=== PATIENT | male | born 1960 | race Caucasian/White ===

== ENCOUNTER 2021-09-07 00:19 | Day surgery (SDC) | payer BC, SELFPAY ==
[2021-08-26 08:44] VITALS: BMI 35.4
[2021-09-07 07:26] VITALS: BP 160/74; PULSE 66; RESP 18; TEMP 36.3; O2SAT 99
[2021-09-07] MEDS: LACTATED RINGERS 1,000 ML 150 ML IV CONT (07:38)
[2021-09-07 07:43] LABS: Glucose Point of Care 153 mg/dl (65-105)
--- NOTE | 2021-09-07 08:18 | PM.IMHP ---
H&P: HPI History of Present Illness Date/Time: 09/07/21 08:18 Chief Complaint: Positive Cologuard test. Narrative: This is a 60-year-old white male patient referred for evaluation of positive Cologuard test. Patient reports that his current weight appetite and bowel movements are normal. Patient denies abdominal pain. He has had no bleeding. Family history is noncontributory. Patient's past medical history is significant for prostate carcinoma for which she had radiation therapy more than 10 years ago. Review of Systems Review of Systems: Review of systems noncontributory. [facility] Past Medical History Medical History (Updated 08/19/21 @ 15:57 by Jessie Francisco PA-C) Encounter for debridement of skin Essential hypertension History of radiation therapy Hyperlipidemia MRSA infection Positive colorectal cancer screening using Cologuard test Prostate cancer Type 2 diabetes mellitus Surgical History Surgical History History of discectomy Family History Family History Grandparent Hypertension Family history of Alzheimer's disease Other Diabetes mellitus Social History Social History Years smoked: 40 Smoking status: Former smoker Tobacco type: cigars Smokeless tobacco user: dissolvable tobacco Second hand tobacco smoke exposure: No Smoking end date: 11/14/19 Alcohol intake: current Drinks per week: 3 Alcohol use details: Beer on occasion. Substance use: never Substance use type: does not use Living arrangements: with family Gender identity (if verbalized by the patient): Male Spiritual care concerns: No Meds Home Medications and Allergies Home Medications Medication Instructions Recorded Confirmed Type glimepiride 2 mg tablet 2 mg PO QAM #90 tabs 05/10/21 09/07/21 Rx lisinopril 40 mg tablet 40 mg PO DAILY #90 tabs 07/09/21 09/07/21 Rx hydrochlorothiazide 25 mg tablet 25 mg PO DAILY #90 tabs 08/02/21 09/07/21 Rx peg 3350-electrolytes 236 240 ml PO Q10M #4,000 mL 08/25/21 Rx gram-22.74 gram-6.74 gram-5.86 gram solution (Golytely) Allergies Allergy/AdvReac Type Severity Reaction Status Date / Time grass pollen Allergy Mild Unknown Verified 09/07/21 07:25 horse dander Allergy Mild Unknown Verified 09/07/21 07:25 Cats Allergy Mild sneezing Uncoded 09/07/21 07:25 and eye itching Vital Signs Vital Signs - 24 hr 09/07/21 07:26 Temperature 97.4 F L Pulse Rate 66 Respiratory Rate 18 Blood Pressure 160/74 H Pulse Oximetry 99 Oxygen Delivery Room Air Exam Narrative: Physical exam reveals patient be alert. Vital signs stable. HEENT exam is unremarkable. Patient is anicteric. Lungs are clear to auscultation and percussion. Heart is without murmur or extra sounds. Abdomen bowel sounds are present soft nontender with no organomegaly. Digital external rectal exam is normal. Assessment and Plan Assessment and plan (1) Positive colorectal cancer screening using Cologuard test: Code(s): R19.5 - Other fecal abnormalities Status: Acute Assessment and Plan: Patient presents for colonoscopy today. He has a prior history of positive Cologuard test. Further recommendations will be given after endoscopy.
[2021-09-07] MEDS: SIMETHICONE ORAL SUSPENSION 20 MG/0.3 ML 30 ML BOTTLE 0.6 ML IRRIGATION (08:39)
[2021-09-07 08:53] VITALS: BP 151/90; PULSE 62; RESP 18; O2SAT 98
[2021-09-07 09:03] VITALS: BP 140/83; PULSE 53; RESP 17; O2SAT 97
[2021-09-07 09:13] VITALS: BP 164/79; PULSE 56; RESP 15; O2SAT 99
== END 2021-09-07 09:19 | disposition home or self-care (01) ==
PROVIDERS: PCP Family Medicine; Visit Provider Internal Medicine Gastroenterology
PROC: 0DJD8ZZ Inspection of Lower Intestinal Tract, Via Natural or Artificial Opening Endoscopic (ICD-10-PCS; CPT 45378; principal; 2021-09-07 08:30)
DX: R19.5 Other fecal abnormalities (principal); D12.2 Benign neoplasm of ascending colon; D12.4 Benign neoplasm of descending colon; D12.5 Benign neoplasm of sigmoid colon; I10 Essential (primary) hypertension; E78.5 Hyperlipidemia, unspecified; E11.9 Type 2 diabetes mellitus without complications; Z85.46 Personal history of malignant neoplasm of prostate; Z92.3 Personal history of irradiation
CPT/HCPCS: 45385; 82948; 88305; J2704; J7120

== ENCOUNTER 2021-09-07 16:29 | Inpatient (IN) | payer BC, SELFPAY ==
[2021-09-07] VITALS (25 sets, daily range): BP systolic 72–186; BP diastolic 55–110; PULSE 51–90; RESP 12–24; TEMP 36.4–36.8; O2SAT 97–100; BMI 35.9
--- NOTE | ~2021-09-07 | NM_ITS ---
EXAMINATION: NM GI bleeding DATE: 09/07/2021 21:26 INDICATION: Bright red blood per rectum. TECHNIQUE: 23.97 mCi Tc 99m in vitro labeled red cells was administered intravenously. Scintigraphic images of the abdomen were obtained for one hour. COMPARISON: CT angiogram abdomen and pelvis, same date. FINDINGS: No pattern of abnormal activity is seen in the abdomen or pelvis to suggest gastrointestina l hemorrhage. IMPRESSION: 1. No evidence of active gastrointestinal hemorrhage. Reviewed, dictated and finalized at location K.
--- NOTE | ~2021-09-07 | CT_ITS ---
EXAMINATION: CTA abdomen pelvis DATE: 09/07/2021 17:41 INDICATION: active rectal bleeding, status post colonoscopy at 8:00 AM today. Abdominal cramping. TECHNIQUE: Computed tomography (CT) angiography in both arterial and venous phases of the abdomen and pelvis was performed with 100 mL Omnipaque-300 intravenous contrast. Automated exposure control and iterative reconstruction technique were employed. The dose-length product was 3155.89 mGy-cm. COMPARISON: 01/19/2011. FINDINGS: Lower thorax: Minimal coronary artery calcification. Liver: Hepatomegaly Biliary/Gallbladder: Gallbladder is normal. No bile duct dilation. Pancreas: No mass or duct dilation. Spleen: Normal. Adrenals:Simple upper pole left renal cyst. Bilateral perinephric stranding. Kidneys: No mass, stone, or hydronephrosis. GI tract: The rectum and distal sigmoid are mildly distended, containing fluid and irregular slightly hyperdense material. Otherwise, no small or large bowel dilation. Normal appendix. Mesentery/Peritoneum: No ascites, mass, or free air. Retroperitoneum: No mass. Scattered atherosclerotic calcifications. No aneurysm. Mild arterial ectasi a. No active arterial or venous extravasation. No significant arterial stenoses. Pelvis: Prostate implants. Mild bladder wall thickening likely due to outlet compromise. Otherwise t he pelvic organs are within normal limits. Soft Tissues: Small bilateral fat-containing inguinal hernias. Bones: No acute osseous finding. IMPRESSION: No active arterial or venous extravasation. No pneumoperitoneum or free abdominopelvic fluid. The dis mercy sigmoid and rectum are mildly distended by fluid and likely clot, consistent with the patient's h istory of rectal bleeding. Reviewed, dictated and finalized at location K. IMPRESSION: No active arterial or venous extravasation. No pneumoperitoneum or free abdomin opelvic fluid. The distal sigmoid and rectum are mildly distended by fluid and likely clot, consistent with the patient's history of rectal bleeding.
[2021-09-07 16:48] LABS: Basophils Absolute Auto 0.1 K/mm3 (0.0-0.1); Basophils Percent Auto 0.4 % (0.2-1.2); Eosinophils Absolute Auto 0.1 K/mm3 (0-0.3); Eosinophils Percent Auto 0.4 % (0-4.4); Hematocrit 42.3 % (42.0-52.0); Hemoglobin 15.1 g/dL (14.0-18.0); Immature Granulocyte Absolute 0.07 K/mm3 (0.00-0.031); Immature Granulocyte Percent A 0.4 % (0-0.5); Lymphocytes Absolute Auto 1.36 K/mm3 (0.9-3.2); Lymphocytes Percent Auto 8.3 % (18.3-44.2); Mean Corpuscular HGB Conc 35.7 g/dl (32-36); Mean Corpuscular Hemoglobin 32.9 pg (26-34); Mean Corpuscular Volume 92.2 fl (80-100); Neutrophils Absolute Auto 13.9 K/mm3 (1.3-6.7); Neutrophils Percent Auto 84.5 % (45.5-73.1); Platelet Count Result 278 k/mm3 (150-375); Red Blood Count 4.59 M/mm3 (4.6-6.20); Red Cell Distribution Width 12.7 % (11.5-14.5); White Blood Count 16.4 K/mm3 (4.5-10.0)
--- NOTE | 2021-09-07 16:49 | ED.GIBLEED ---
HPI - GI Bleed General Chief complaint: GI Bleed Stated complaint: bleeding post colonoscopy Time Seen by Provider: 09/07/21 16:49 History of Present Illness HPI Narrative: Patient is a 60-year-old male with history of hypertension, hyperlipidemia, type 2 diabetes he recently had a positive Cologuard screening test and was taken for routine colonoscopy this morning by Dr. Baptiste. Patient noted to have 4 polyps that were removed some with snare technique, presenting to the emergency department for evaluation of bright red blood per rectum. Colonoscopy was at 8 AM this morning. Patient reports bleeding present over the past 4 hours. Patient was noted to be diaphoretic, pale in triage with bright red blood from the patient's bottom on the waiting room seat. Related Data Allergies Allergy/AdvReac Type Severity Reaction Status Date / Time grass pollen Allergy Mild Unknown Verified 09/07/21 17:00 horse dander Allergy Mild Unknown Verified 09/07/21 17:00 Cats Allergy Mild sneezing Uncoded 09/07/21 17:00 and eye itching Review of Systems Review of Systems: CONSTITUTIONAL: Denies fever, chills, or sweats. ENT: Denies rhinorrhea, congestion, sore throat, or otalgia. CARDIOVASCULAR: Denies chest pain, palpitations, or edema. RESPIRATORY: Denies cough or dyspnea. GASTROINTESTINAL: Denies abdominal pain, nausea, vomiting, or diarrhea. Reports bright red blood per rectum. GENITOURINARY: Denies dysuria or hematuria. SKIN: Denies rash or itching. MUSCULOSKELETAL: Denies back pain, joint pain, or myalgia. NEUROLOGIC: Denies headache, numbness, or weakness. [facility] Past Medical History Medical History Encounter for debridement of skin Essential hypertension History of radiation therapy Hyperlipidemia MRSA infection Positive colorectal cancer screening using Cologuard test Prostate cancer Type 2 diabetes mellitus Surgical History Surgical History History of discectomy Family History Family History Grandparent Hypertension Family history of Alzheimer's disease Other Diabetes mellitus Social History Social History Years smoked: 40 Smoking status: Former smoker Tobacco type: cigars Smokeless tobacco user: dissolvable tobacco Second hand tobacco smoke exposure: No Smoking end date: 11/14/19 Alcohol intake: current Drinks per week: 3 Alcohol use details: Beer on occasion. Substance use: never Substance use type: does not use Gender identity (if verbalized by the patient): Male Spiritual care concerns: No Exam Narrative: GENERAL: Awake, alert, diaphoretic HEAD: Normocephalic, atraumatic. EYES: PERRLA and EOMI. ENT: Nares clear, no rhinorrhea or epistaxis. Mucous membranes dry NECK: Supple. CHEST: No respiratory distress, breathing even and non labored HEART: Regular rate, sinus rhythm ABDOMEN:Non distended, non tender : + Bright red blood per rectum EXTREMITIES: Normal range of motion. No edema. SKIN: Pale, cool, dry, no rash. NEURO:No focal deficits. Alert and oriented x3 Course Vital Signs Vital signs: Vital Signs Temperature 36.5 C 09/07/21 16:31 Pulse Rate 90 09/07/21 16:31 Respiratory Rate 16 09/07/21 16:31 Blood Pressure 158/110 H 09/07/21 16:31 Pulse Oximetry 98 09/07/21 16:31 Temperature 36.5 C 09/07/21 16:31 Pulse Rate 63 09/07/21 18:31 Respiratory Rate 14 09/07/21 18:31 Blood Pressure 133/72 09/07/21 18:31 Pulse Oximetry 100 09/07/21 18:31 MDM - GI Bleed MDM Narrative Medical decision making narrative: Patient presenting for evaluation of bright red blood per rectum after recent polypectomy with snare today with gastroenterology. At the time of assessment, it appears the patient has nearly syncopized which m
--- NOTE | 2021-09-07 16:50 | ECG_ITS ---
Measurements Intervals [place] Rate: 88 P: 48 NH: 155 QRS: -14 QRSD: 110 T: 5 QT: 357 QTc: 432 Interpretive Statements SINUS RHYTHM VENTRICULAR PREMATURE COMPLEXES POOR R WAVE PROGRESSION, ANTERIOR LEADS INFERIOR INFARCT, AGE INDETERMINATE BASELINE ARTIFACT- I, II, III, AVR, AVL, AVF, V2 ABNORMAL ECG Electronically Signed On 09-07-2021 19:30:35 CDT by Herrera Zuniga D.O.
--- NOTE | 2021-09-07 16:50 | PC.NURSE ---
Pt brought to room after passing blood rectally while in lobby. Son noticed pt had become less responsive, pale and diaphoretic. Large amount blood noted in chair when getting pt into wc. Bright red blood noted to underwear on arrival to room.
[2021-09-07 16:57] LABS: Alanine Aminotransferase 38 U/L (6-50); Albumin Level 4.8 g/dL (3.5-5.1); Alkaline Phosphatase 59 U/L (38-126); Anion Gap 11 mmol/L (8-16); Aspartate Amino Transferase 34 U/L (17-59); Bilirubin,Total 0.7 mg/dL (0.2-1.3); Blood Urea Nitrogen 15 mg/dL (9-20); Calcium 8.6 mg/dL (8.4-10.2); Carbon Dioxide 20 mmol/L (22-30); Chloride 100 mmol/L (98-107); Estimated CRCL calculation 108 ml/min; Estimated Glomerular Filt Rate > 60; Glucose 158 mg/dL (65-110); Potassium 3.6 mmol/L (3.4-5.0); Sodium 131 mmol/L (137-145)
[2021-09-07 17:02] LABS: INR 1.1; Prothrombin Time 13.3 Seconds (11.1-14.7)
[2021-09-07 17:03] LABS: Partial Thromboplastin Time 32.8 SECONDS (22.3-36.8)
--- NOTE | 2021-09-07 17:12 | PC.NURSE ---
Called to room by son, pt reports he feels like he is going to pass out. Pt diaphoretic and pale. Moderate amount bright red blood on pad under pt.
[2021-09-07 17:16] LABS: Lactic Acid Reflex 2.5 mmol/L (0.7-2.0)
[2021-09-07] MEDS: SODIUM CHLORIDE 0.9% IV 1,000 ML 999 ML IV CONT (17:23)
[2021-09-07 18:04] LABS: Hematocrit 35.8 % (42.0-52.0); Hemoglobin 13.1 g/dL (14.0-18.0)
--- NOTE | 2021-09-07 19:00 | PM.IMHP ---
H&P: HPI History of Present Illness Date/Time: 09/07/21 19:00 Chief Complaint: Rectal bleeding. Narrative: This is a pleasant 60-year-old male with with diabetes, hypertension, hyperlipidemia, and history of prostate cancer presented to the emergency department from home for evaluation of rectal bleeding. He had a screening colonoscopy with polypectomy this morning at about 08:00 and he returned home at 09:30 feeling in his usual state of health. In fact he was able to eat breakfast and do some work from his home office. At around 14:00 he had the urge to have a bowel movement at which time he passed bright red blood per rectum. 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 While in the waiting room he had a near syncopal episode when he passed a large amount of bright red blood, enough to soak through his thick giancarlo jeans. He had a couple of presumed vagal episodes in the emergency department with transient hypotension but his blood pressure has otherwise remained stable. His hemoglobin and hematocrit have also been quite stable the last several hours. A CTA of the abdomen and pelvis and subsequent tagged red blood cell scan showed no active extravasation. At the time my evaluation he is feeling better and is biggest complaint is that of the discomfort from lying on a gurney for multiple hours. He denies fever, chills, sweats, chest pain, shortness breast, abdominal pain, nausea, and vomiting. Review of Systems Review of Systems: Twelve systems were reviewed and are negative except for as per HPI. [facility] Past Medical History Medical History (Updated 09/07/21 @ 23:31 by Kathy Wilkins PA-C) Essential hypertension Hyperlipidemia MRSA infection Perineal abscess which was debrided and in fact findings were consistent with necrotizing fasciitis. Prostate cancer Status post radiation therapy. Type 2 diabetes mellitus Surgical History Surgical History (Updated 09/07/21 @ 23:25 by Kathy Wilkins PA-C) History of colonoscopy with polypectomy (09/07/21) History of discectomy L3-L4. History of incision and drainage Necrotizing fasciitis of the perineal abscess. Family History Family History Grandparent Hypertension Family history of Alzheimer's disease Other Diabetes mellitus Social History Social History (Updated 09/07/21 @ 23:26 by Kathy Wilkins PA-C) Social History: Surrogate medical decision maker: [place], son. Code status: Full code. Years smoked: 40 Smoking status: Former smoker Tobacco type: cigars Smokeless tobacco user: dissolvable tobacco Second hand tobacco smoke exposure: No Smoking end date: 11/14/19 Alcohol intake: current Drinks per week: 2 Alcohol use details: Beer on occasion. 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 care concerns: No Meds Home Medications and Allergies Home Medications Medication Instructions Recorded Confirmed Type glimepiride 2 mg tablet 2 mg PO QAM #90 tabs 05/10/21 09/07/21 Rx lisinopril 40 mg tablet 40 mg PO DAILY #90 tabs 07/09/21 09/07/21 Rx hydrochlorothiazide 25 mg tablet 25 mg PO DAILY #90 tabs 08/02/21 09/07/21 Rx Allergies Allergy/AdvReac Type Severity Reaction Status Date / Time grass pollen Allergy Mild Unknown Verified 09/07/21 17:00 horse dander Allergy Mild Unknown Verified 09/07/21 17:00 Cats Allergy Mild sneezing Uncoded 09/07/21 17:00 and eye itching Vital Signs Vital Signs - 24 hr 09/07/21 16:31 09/07/21 17:13 09/07/21 17:00 Temperature 97.7 F Pulse Rate 90 64 78 Respiratory Rate 16 20 20 Blood Pressure 158/110 H 72/55 L 124/96 H Pulse Oximetry 98 98 97 09/07/21 17:15 09/07/21 17:00 09/07/21 17:47 [place]
[2021-09-07 19:16] LABS: Hematocrit 39.5 % (42.0-52.0)
[2021-09-07 19:26] LABS: Lactic Acid Reflex 1.9 mmol/L (0.7-2.0)
--- NOTE | 2021-09-07 19:44 | PC.NURSE ---
Was told by day shift RN that pt does not need blood transfusion at this time per hospitalist.
[2021-09-07 20:02] LABS: SARS-CoV-2 RNA PCR Negative
[2021-09-07 20:04] LABS: Reflex Lactic Acid Yes or No Add Lactic
--- NOTE | 2021-09-07 22:00 | ADMGEN ---
This patient, Josh David, was admitted to IMU Room 205-01. Patient/family oriented to hospital policies and general routines including ID bracelet, bed and alarms, visiting hours, pain management, procedures, bathroom and other care routines, personal items, smoking policy, room service/diet, and visiting hours. Information on how to activate the Rapid Response Team has been discussed. Patient/Family are encouraged to report perceived risks to care and to ask questions if they do not understand what they are told or what they should do.
[2021-09-07 23:37] LABS: Hematocrit 40.6 % (42.0-52.0); Hemoglobin 14.5 g/dL (14.0-18.0)
[2021-09-08] VITALS (9 sets, daily range): BP systolic 156–175; BP diastolic 84–103; PULSE 58–74; RESP 16–20; TEMP 36.3–36.8; O2SAT 95–100
[2021-09-08 03:18] LABS: Hematocrit 35.9 % (42.0-52.0); Hemoglobin 12.9 g/dL (14.0-18.0); Mean Corpuscular HGB Conc 35.9 g/dl (32-36); Mean Corpuscular Hemoglobin 33.2 pg (26-34); Mean Corpuscular Volume 92.3 fl (80-100); Mean Platelet Volume 8.9 fl (7.4-10.4); Platelet Count Result 213 k/mm3 (150-375); Red Blood Count 3.89 M/mm3 (4.6-6.20); White Blood Count 11.7 K/mm3 (4.5-10.0)
[2021-09-08 03:42] LABS: Anion Gap 7 mmol/L (8-16); Blood Urea Nitrogen 14 mg/dL (9-20); Calcium 8.6 mg/dL (8.4-10.2); Carbon Dioxide 23 mmol/L (22-30); Chloride 104 mmol/L (98-107); Estimated CRCL calculation 121 ml/min; Estimated Glomerular Filt Rate > 60; Glucose 122 mg/dL (65-110); Magnesium 2.1 mg/dL (1.6-2.3); Potassium 3.9 mmol/L (3.4-5.0); Sodium 134 mmol/L (137-145)
[2021-09-08 07:03] LABS: Hematocrit 37.3 % (42.0-52.0); Hemoglobin 12.8 g/dL (14.0-18.0)
--- NOTE | 2021-09-08 07:25 | WPDGICN ---
Assessment and Plan Assessment and plan (1) Post-polypectomy bleeding: Status: Acute Assessment and Plan: Patient has had apparent post polypectomy bleeding. This appears to have stopped as he has gone more than 8 hours with no recent bowel movement. Hemoglobin 12.8 this morning appears stable. Plan will be to increase diet and increase activity. Observe for brief interval and discharged later today if hemoglobin remains stable diet tolerated and blood pressure adequate. (2) Vaso vagal episode: Code(s): R55 - Syncope and collapse Status: Acute Assessment and Plan: Patient had vagal response yesterday to bleeding diarrhea and blood in the stool. Transient low blood pressure was noted. This appears to have improved to after overnight rehydration. (3) History of colon polyps: Code(s): Z86.010 - Personal history of colonic polyps Status: Acute Assessment and Plan: Patient multiple colon polyps identified at time of endoscopy. the histology of these polyps is still pending at this time. Suspect that these will be benign adenomas and if so then follow-up colonoscopy in 3 years is advised. GI Consult Note Consult date/time: 09/08/21 07:25 Reason for consult: lower GI bleeding. HPI: Josh David is a 60 year old male Presents with lower GI bleeding. Patient was in hs usual state of health. Patient had positive: Guard tests. Yesterday underwent screening colonoscopy and 5-6 colon polyps removed from the colon. Patient did well until yesterday afternoon when he PEG and pass bloody stools. This persisted until he presented to the emergency room approximately 5:00 a.m. last evening. He had episode of hypotension in the ER. After rehydration patient's blood pressure improved. He did have several other bowel movements throughout the evening but last bowel movement was at 11:00 p.m.. He states that now at 7:00 a.m. feels the urge that he may have an additional bowel movement. He denies any significant abdominal pain at present. Currently feels back to baseline. He has never had bleeding previously. Family history is noncontributory. Review of Systems Review of Systems: Review of systems noncontributory. [facility] Past Medical History Medical History (Updated 09/08/21 @ 07:28 by Josh Baptiste MD) Essential hypertension Hyperlipidemia MRSA infection Perineal abscess which was debrided and in fact findings were consistent with necrotizing fasciitis. Prostate cancer Status post radiation therapy. Type 2 diabetes mellitus Surgical History Surgical History (Updated 09/07/21 @ 23:25 by Kathy Wilkins PA-C) History of colonoscopy with polypectomy (09/07/21) History of discectomy L3-L4. History of incision and drainage Necrotizing fasciitis of the perineal abscess. Family History Family History Grandparent Hypertension Family history of Alzheimer's disease Other Diabetes mellitus Social History Social History (Updated 09/07/21 @ 23:26 by Kathy Wilkins PA-C) Social History: Surrogate medical decision maker: [place], son. Code status: Full code. Years smoked: 40 Smoking status: Former smoker Tobacco type: cigars Smokeless tobacco user: dissolvable tobacco Second hand tobacco smoke exposure: No Smoking end date: 11/14/19 Alcohol intake: current Drinks per week: 2 Alcohol use details: Beer on occasion. 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 Spiritual care concerns: No Meds Home Medications and Allergies Home Medications Medication Instructions Recorded Confirmed Type glimepiride 2 mg tablet 2 mg PO QAM #90 tabs 05/10/21 09/07/21 Rx lisinopril 40 mg tablet 40 mg PO DAILY #90 tabs 07/09/21 09/07/21 Rx hydrochlorothiazide 25 mg tabl
[2021-09-08 08:35] LABS: Glucose Point of Care 131 mg/dl (65-105)
[2021-09-08 09:30] LABS: Hematocrit 37.8 % (42.0-52.0)
[2021-09-08 12:52] LABS: Glucose Point of Care 150 mg/dl (65-105)
[2021-09-08 16:07] LABS: Hematocrit 39.4 % (42.0-52.0); Hemoglobin 13.4 g/dL (14.0-18.0)
--- NOTE | 2021-09-08 16:47 | PM.DS ---
DS: Admitting Diagnosis Discharge Date 09/08/21 Admitting Diagnosis Rectal bleeding DS: Discharge Diagnosis Discharge Diagnosis (1) Post-polypectomy bleeding: Status: Acute Assessment and Plan: CTA of the abdomen and pelvis as well as tagged red blood cell scan were negative for active bleeding. Dr. Baptiste saw the patient this morning and felt if he tolerated a diet and hemoglobin and hematocrit were stable the patient could be discharged to home. Patient passed a few old clots in the morning but by afternoon had a well formed stool and h/h stable at 13/39. Patient advised to avoid NSAIDS and aspirin products until after follow up with PCP. Patient will be discharged to home. (2) Vaso vagal episode: Code(s): R55 - Syncope and collapse Status: Acute Assessment and Plan: Related to above. He had a couple of transient episodes of hypotension in the ER but is now stable. On rounds, patient denied feeling lightheaded or dizzy. Patient denied cardiac history and denied chest pain, shortness of breath. This resolved immediately after the event. (3) Type 2 diabetes mellitus: Qualifiers: Diabetes mellitus long-term insulin use: without long-term use Diabetes mellitus complication status: without complication Qualified Code(s): E11.9 - Type 2 diabetes mellitus without complications Code(s): E11.9 - Type 2 diabetes mellitus without complications Status: Acute Assessment and Plan: Will resume all home medications for discharge. (4) Essential hypertension: Code(s): I10 - Essential (primary) hypertension Status: Acute Assessment and Plan: Patient now hypertensive. Will resume all home medications for discharge. DS: Summary Hospital Course Reason for hospitalization: Rectal bleeding Hospital Course: 60M with a past medical history of diabetes, positive FIT s/p colonoscopy and hypertension who presented to the emergency department with rectal bleeding. Patient had a colonoscopy earlier in the day due to having a positive fecal immunohistochemical test. Patient reported having noted large amount of blood passed with bowel movement. He was initially at work and had a bloody bowel movement that soaked his jeans. Patient had a blood pressure reading of 72/55 and patient reports having blacked out in the waiting room. Patient denied symptoms of lightheadedness, dizziness, chest pain, shortness of breath. Patient underwent CTA of the abdomen and tagged red blood cell scan with no bleeding on either study. Patient hemoglobin was trended and remained stable at 13/39. Patient had passage of blood clots around 0800 the next morning and then later in the day a more well formed stool without blood. Gastroenterology saw the patient and recommended discharge if the patient tolerated a diet and hemoglobin and hematocrit remained stable. Patient was discharged to home and advised to follow up with primary care physician within a week from discharge. Time Spent with Patient Time attestation: Total time spent providing and/or coordinating discharge services: Exam Narrative: GENERAL: NAD, cooperative HEENT: Normocephalic, atraumatic, anicteric NECK: Supple CV: Normal S1, S2, RRR, No MRG RESP: CTAB, Normal work of breathing. Abdomen: Soft, non-tender, non-distended, +BS EXTREMITIES: Warm and well perfused, no clubbing, cyanosis. SKIN: warm, dry and intact. NEURO: CN 2-12 grossly intact. DS: Data Data Completed and Pending Labs on day of discharge: Labs from last 24 hours 09/08/21 09/08/21 09/08/21 16:00 11:43 09:21 WBC RBC Hgb 13.4 L 13.0 L Hct 39.4 L 37.8 L MCV MCH MCHC RDW Plt Count MPV Immature Gran % (Auto) Neut % (Auto) Lymph % (Auto) [place] % (Auto) Eos % (Auto) Baso % (Auto) Lymph # (Auto) [place] # (Auto) Eos # (Auto) Baso # (Auto) Abs Immat Gran (auto) A
[2021-09-08 16:54] LABS: Glucose Point of Care 161 mg/dl (65-105)
== END 2021-09-08 17:50 | disposition home or self-care (01) | DRG 921 ==
LOC: ANHED 19:22 → ANHIMU 21:52
PROVIDERS: Emergency Medicine; Physician Assistant; Admitting Provider Internal Medicine; Emergency Provider Emergency Medicine; PCP Family Medicine; Visit Provider Family Medicine
DX: K91.840 Postprocedural hemorrhage of a digestive system organ or structure following a digestive system procedure (principal); R55 Syncope and collapse; I10 Essential (primary) hypertension; E78.5 Hyperlipidemia, unspecified; E11.9 Type 2 diabetes mellitus without complications; C61 Malignant neoplasm of prostate; Z92.3 Personal history of irradiation; Z87.891 Personal history of nicotine dependence; Z20.822 Contact with and (suspected) exposure to COVID-19; Z86.010 Personal history of colon polyps
CPT/HCPCS: 36415; 74174; 78278; 80048; 80053; 82948; 83605; 83735; 85014; 85018; 85025; 85027; 85610; 85730; 86850; 86900; 86901; 86920; 88305; 93005; 96360; 99285; A9560; C9803; J2704; J7030; J7120; Q9967; U0003; U0005

== ENCOUNTER 2024-06-03 09:59 | Outpatient (CLI) | payer BC, SELFPAY ==
--- NOTE | ~2024-06-03 | US_ITS ---
EXAMINATION: US arterial duplex LE DATE: 06/03/2024 11:00 INDICATION: Decreased pedal pulses TECHNIQUE: Grayscale ultrasound images without and with compression and Doppler ultrasound images of the bilateral lower extremity veins were obtained. COMPARISON: None. FINDINGS: Peak systolic velocity (cm/sec) ; waveform Right lower extremity External iliac artery: 120; triphasic Common femoral artery: 109; triphasic Profunda femoral artery: 86; triphasic Superficial femoral artery: 110; triphasic Popliteal artery: 80; triphasic Anterior tibial artery: 64; triphasic Posterior tibial artery: 95; triphasic Peroneal artery: 57; triphasic Dorsalis pedis: 89; triphasic Peak systolic velocity (cm/sec) ; waveform Left lower extremity External iliac artery: 132; triphasic Common femoral artery: 117; triphasic Profunda femoral artery: 78; triphasic Superficial femoral artery: 134; triphasic Popliteal artery: 74; triphasic Anterior tibial artery: 73; triphasic Posterior tibial artery: 91; triphasic Peroneal artery: 80; triphasic Dorsalis pedis: 70; triphasic IMPRESSION: No evidence of peripheral vascular disease, as detailed above Reviewed, dictated and finalized at location A.
--- OUTSIDE RECORDS SUMMARY | 2024-06-03 11:01 | XMS_ITS | Continuity of Care Document ---
Author Organization [facility] Address [address] [place] [address] Phone Care Team Providers Care Salvage Cutter Name Role Phone Ro OD, Josh Unavailable Unavailable Advance Directives Directive Yes / No Effective Date File Name No Information Encounters Encounter Description Practice Location Reason(s) For Visit Diagnoses Date Provider Providers Copied on Encounter [facility], [address], [place], [place], [id number], [place] tel:[phone] [address] [facility] No Information Oct-0 9-200 2 Ro OD Josh. [address] , [address], [place], [address], [place]. tel:[phone] Family History Family Member Type Diagnosis Age At Onset No Information Payers Payer name Insurance type Covered constitution party ID Authoriza tion(s) No Information Social History Type Description Quantity Date Captured Comments Sex Male Smoking Status No Information Chief Complaint And Reason For Visit No Information Reason For Referral Reason For Referral No Information History Of Present Illness Encounter Date Complaint History Of Prese nt Illness No Information Functional Status Date Functional Assessmen t No Information Instructions Date Instruction Additional Infor mation No Information Assessments Type Assessment Date No Information Patient Care Teams Name Effective Dates (start - stop) Status Members No Information
--- OUTSIDE RECORDS SUMMARY | 2024-06-03 11:01 | XMS_ITS | Clinical Summary ---
Author Organization [facility] al Address [address] [place] [address] Care Team Providers Care Bareback Rider Name Role Phone Gonsalo Valdez MD Unavailable [phone] Tyesha Bean MD Primary Care Provider [phone] Allergies No known active allergies Medications No known medications Active Problems Problem Noted Date Diagnosed Date Prostate cancer 01/03/2018 Surgical History Surgery Date Site/Laterality Comments BACK SURGERY Back Surgery - (Added by Conv) Medical History Medical History Date Comments Other chronic pain Chronic pain - (Added by Conv) Social History Tobacco Use Types Packs/Day Years Used Date Smoking Tobacco: Former Smokeless Tobacco: Never Tobacco Cessation:Counseling Given: No Sex and Gender Information Value Date Recorded Sex Assigned at Not on file Legal Sex Male 7:15 AM TEACHER KINDER[place]ARTEN Gender Identity Not on file Sexual Orientation Not on file Obstetrics History Last Filed Vital Signs Vital Sign Reading Time Taken Comments Blood Pressure - - Pulse - - Temperature - - Respiratory Rate - - Oxygen Saturation - - Inhaled Oxygen Concentration - - Weight 129.2 kg (284 lb 12.8 oz) 2021 10:32 AM TEACHER [place] Height 185.4 cm (6' 1 ) 01/02/2018 3:29 PM TEACHER KINDERGARTEN Body Mass Index 37.57 01/02/2018 3:29 PM TEACHER KINDERGARTEN Plan of Treatment Health Maintenance Due Date Last Done Comments Colon Cancer Screening-Colonoscopy 1960 Depression Screening 1960 Hepatitis C Screening 1960 Hepatitis B Screening 1978 Regular Well Visit/Exam 18-64 1978 DTaP/Tdap/Td Vaccine (1 - Tdap) 08/15/2003 08/14/2003 Zoster Vaccine (1 of 2) 2010 Influenza Vaccine (#1) 2023 Prostate Cancer Screening-PSA 12/28/2023 12/27/2021, 12/28/2020, 12/30/2019, Additional history exists Pneumococcal vaccine <65 Aged Out No longer eligible based on patient's age to complete this topic Procedures Procedure Name Priority Date/Time Associated Diagnosis Comments PSA DIAGNOSTIC Routine 12/27/2021 10:54 AM TEACHER KINDER[place]ARTEN Prostate cancer (HCC) from Last 3 Months or Most Recently Relevant to Health Maintenance Results * PSA diagnostic (12/27/2021 10:54 AM TEACHER KINDERGARTEN) PSA-Total 0.13 <=5.40 ng/mL YASMEEN LOCKHART Comment: Interpretive Data AGE SEX REFERENCE INTERVAL 0 minutes-150 years Female None 0 minutes-49 years Male None 50-59 years Male 0-3.90 60-69 years Male 0-5.40 70-79 years Male 0-6.20 80-150 years Male 0-6.20 The Favio PSA Total assay procedure was used. Results from different manufacturers or methods may not be comparable. Serial testing should be performed using the same method. Current interpretive data last revised 21. Blood 12/27/2021 10:5 4 AM TEACHER [place]ER[place]ARTEN 12/27/2021 11:12 AM TEACHER [place] us Virgie Jefferson NP LAB BLOOD ORDERABLES Final Result [facility] One [facility] Department [place] [address] from Last 3 Months or Most Recently Relevant to Health Maintenance Insurance [place] CHO[place] ACC[place] GetSocial [place] GetSocial [place] Care Teams Bareback Rider Relationship Specialty Start Date End Date Tyesha Bean MD [address] [place] [address] PCP - General Family Medicine 12/27/21 Gonsalo Valdez MD [address] [place] [address] 05/17/18
--- OUTSIDE RECORDS SUMMARY | 2024-06-03 11:01 | XMS_ITS | Referral Summary ---
Author Organization [facility] al Address [address] [place] [address] Care Team Providers Care Vocational Rehabilitation Supervisor Name Role Phone Gonsalo Valdez MD Unavailable [phone] Tyesha Bean MD Primary Care Provider [phone] Allergies No known active allergies Medications No known medications Active Problems Problem Noted Date Diagnosed Date Prostate cancer 01/03/2018 Social History Tobacco Use Types Packs/Day Years Used Date Smoking Tobacco: Former Smokeless Tobacco: Never Tobacco Cessation:Counseling Given: No Sex and Gender Information Value Date Recorded Sex Assigned at Not on file Legal 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 Male 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 Gender Identity Not on file Sexual Orientation Not on file Last Filed Vital Signs Vital Sign Reading Time Taken Comments Blood Pressure - - Pulse - - Temperature - - Respiratory Rate - - Oxygen Saturation - - Inhaled Oxygen Concentration - - Weight 129.2 kg (284 lb 12.8 oz) 2021 10:32 AM WIND FARM OPERATIONS MANAGER Height 185.4 cm (6' 1 ) 01/02/2018 3:29 PM WIND FARM OPERATIONS MANAGER Body Mass Index 37.57 01/02/2018 3:29 PM WIND FARM OPERATIONS MANAGER Plan of Treatment Not on file Procedures Procedure Name Priority Date/Time Associated Diagnosis Comments PSA DIAGNOSTIC Routine 12/27/2021 10:54 AM WIND FARM OPERATIONS MANAGER Prostate cancer (HCC) from Last 3 Months or Most Recently Relevant to Health Maintenance Results * PSA diagnostic (12/27/2021 10:54 AM WIND FARM OPERATIONS MANAGER) PSA-Total 0.13 <=5.40 ng/mL YASMEEN LOCKHART Comment: [...] revised 21. Blood 12/27/2021 10:5 4 AM WIND FARM OPERATIONS MANAGER 12/27/2021 11:12 AM WIND FARM OPERATIONS MANAGER us Virgie Jefferson PASTE UP ARTIST LAB BLOOD ORDERABLES Final Result [facility] [place] [address] from Last 3 Months or Most Recently Relevant to Health Maintenance Insurance [place] [facility] Address: [address] [place] [address] [place] [facility] Care Teams Vocational Rehabilitation Supervisor Relationship Specialty Start Date End Date Tyesha Bean MD [address] [place] [address] PCP - General Family Medicine 12/27/21 Gonsalo Valdez MD [address] [place] [address] 05/17/18
--- OUTSIDE RECORDS SUMMARY | 2024-06-03 11:01 | XMS_ITS | Encounter Summary ---
Author Organization [facility] Address [address] [place] [address] Phone Care Team Providers Care Body Man Name Role Phone Gosnalo Valdez MD Primary Care Provider +- [phone] Sayra Peacock MD Primary Care Provider + [phone] Gonsalo Valdez MD Unavailable [phone] Gonsalo Valdez MD Primary Care Provider + [phone] Tyesha Bean MD Primary Care Provider [phone] Encounter Details Date Type Department Care Team (Late st Contact Info) Description 01/02/2017 Orders Only [facility] ProviderBarbara MD [address] [place] [address] Social History Tobacco Use Types Packs/Day Years Used Date Smoking Tobacco: Never Assessed Sex and Gender Information Value Date Recorded Sex Assigned at Not on file Legal Sex Male 7:15 AM APPLICATION SPECIALIST Gender Identity Not on file Sexual Orientation Not on file documented as of this encounter Plan of Treatment Not on file documented as of this encounter Procedures Procedure Name Priority Date/Time Associated Diagnosis Comments GENERAL RADIOLOGY REPORT 01/02/2017 documented in this encounter Results * GENERAL RADIOLOGY REPORT (01/02/2017) Anatomical Region Laterality Modality Radiographic Toya ging Narrative 01/02/2017 Ordered by an unspecified provider. Historical Provider MD HALL XR PROCEDURES Final R esult documented in this encounter Visit Diagnoses Not on filedocumented in this encounter Care Teams Body Man Relationship Specialty Start Date End Date Gonsalo Valdez MD [address] [place] [address] PCP - General 04/18/16 05/16/18 Sayra Peacock MD [address] [place] [address] PCP - General 05/17/18 07/01/18 Gonsalo Valdez MD [address] [place] [address] PCP - General 07/02/18 12/26/21 Tyesha Bean MD [address] [place] [address] PCP - General Family Medicine 12/27/21 Gonsalo Valdez MD [address] [place] [address] 05/17/18 documented as of this encounter
--- OUTSIDE RECORDS SUMMARY | 2024-06-03 11:02 | XMS_ITS | Clinical Summary ---
Author Organization [facility] Romulo rivas [facility] Address [address] [facility] [place] [address] Care Team Providers Care Social Sciences Chair Name Role Phone Unavailable Primary Care Provider Unavailabl e Social History Tobacco Use Types Packs/Day Years Used Date Smoking Tobacco: Never Assessed Sex and Gender Information Value Date Recorded Sex Assigned at Not on file Legal Sex Male 10:56 AM SOW FARM TECHNICIAN Gender Identity Not on file Sexual Orientation Not on file Plan of Treatment Upcoming Encounters Date Type Department Care Team (Late st Contact Info) Description 07/03/2024 10:30 AM CDT Office Visit [facility] Oncology and Hematology - Jacky [address] [facility] [address] [place] [address] Leandro Mai MD [address] [facility] [address] [place] [address] Health Maintenance Due Date Last Done Comments DTAP/TDAP/TD VACCINES (1 - Tdap) 11/21/1979 COLORECTAL SCREENING 2005 Colorectal Cancer Screening 2005 FIT-DNA Q 3 years 2005 FIT/FOBT Q 1 year 2005 Flex Sig/CT Colonography Q 5 years 2005 ZOSTER VACCINE (1 of 2) 2010 INFLUENZA VACCINE (#1) 2023 RSV VACCINE (60+ or ) (1 - 1-dose 75+ series) 11/21/2035 Insurance BCBS BLUE ACCESS CHOICE [facility]
== END 2024-06-03 10:00 | disposition home or self-care (01) ==
PROVIDERS: PCP Family Medicine; Visit Provider Family Medicine
DX: I73.9 Peripheral vascular disease, unspecified (principal)
CPT/HCPCS: 93925

== ENCOUNTER 2024-07-05 09:00 | Outpatient (CLI) | payer BC, SELFPAY ==
--- OUTSIDE RECORDS SUMMARY | 2024-07-05 09:11 | XMS_ITS | Continuity of Care Document ---
Author Organization [facility] Address [address] [place] [address] Phone Care Team Providers Care Hide Dropper Name Role Phone Ro OD, Josh Unavailable Unavailable Advance Directives Directive Yes / No Effective Date File Name No Information Encounters Encounter Description Practice Location Reason(s) For Visit Diagnoses Date Provider Providers Copied on Encounter [facility], [address], [place], [place], [id number], [place] tel:[phone] [facility] No Information Oct-0 9-200 2 Ro OD Josh. [address] [facility] [address] , [address], [place], [address], [place]. tel:[phone] Family History Family Member Type Diagnosis Age At Onset No Information Payers Payer name Insurance type Covered alliance party ID Authoriza tion(s) No Information Social [...]
--- OUTSIDE RECORDS SUMMARY | 2024-07-05 09:11 | XMS_ITS | Encounter Summary ---
Author Organization [facility] [employer] [facility] Address [address] [place] [address] Care Team Providers Care Technical Publications Manager Name Role Phone Unavailable Primary Care Provider Unavailabl e Encounter Details Date Type Department Care Team (Late st Contact Info) Description 07/04/2024 Abstract [facility] Oncology and Hematology [address] [place] [address] Leandro Mai MD [address] [facility] [address] [place] [address] Social History Tobacco Use Types Packs/Day Years Used Date Smoking Tobacco: Never Smokeless Tobacco: Never Alcohol Use Standard Drinks/Week Comments Yes 0 (1 standard drink = 0.6 oz pur e alcohol) OCCASIONAL Sex and Gender Information Value Date Recorded Sex Assigned at Not on file Legal Sex Male 10:56 AM COMMUNITY HEALTH NURSE STAFF Gender Identity Not on file Sexual Orientation Not on file documented as of this encounter Plan of Treatment Upcoming Encounters Date Type Department Care Team (Late st Contact Info) Description 07/18/2024 4:30 PM CDT Telephone Check Up [facility] Oncology and Hematology - Jacky [address] [place] [address] Leandro Mai MD [address] [facility] [address] [place] [address] documented as of this encounter Visit Diagnoses Not on filedocumented in this encounter
--- OUTSIDE RECORDS SUMMARY | 2024-07-05 09:11 | XMS_ITS | Clinical Summary ---
Author Organization [facility] al Address [address] [place] [address] Care Team Providers Care Recycling Worker Name Role Phone Gonsalo Valdez MD Unavailable [phone] Tyesha Bean MD Primary Care Provider [phone] Allergies No known active allergies Medications No [...] on file Legal Sex Male 7:15 AM ENTRY LEVEL INSTALLATION TECHNICIAN Gender Identity Not on file Sexual Orientation Not on file Obstetrics History Last Filed Vital Signs Vital Sign Reading Time Taken Comments Blood Pressure - - Pulse - - Temperature - - Respiratory Rate - - Oxygen Saturation - - Inhaled Oxygen Concentration - - Weight 129.2 kg (284 lb 12.8 oz) 2021 10:32 AM ENTRY LEVEL INSTALLATION TECHNICIAN Height 185.4 cm (6' 1 ) 01/02/2018 3:29 PM ENTRY LEVEL INSTALLATION TECHNICIAN Body Mass Index 37.57 01/02/2018 3:29 PM ENTRY LEVEL INSTALLATION TECHNICIAN Plan of Treatment Health Maintenance Due Date [...] Comments PSA DIAGNOSTIC Routine 12/27/2021 10:54 AM ENTRY LEVEL INSTALLATION TECHNICIAN Prostate cancer (HCC) from Last 3 Months or Most Recently Relevant to Health Maintenance Results * PSA diagnostic (12/27/2021 10:54 AM ENTRY LEVEL INSTALLATION TECHNICIAN) PSA-Total 0.13 <=5.40 ng/mL YASMEEN LOCKHART Comment: [...] revised 21. Blood 12/27/2021 10:5 4 AM ENTRY LEVEL INSTALLATION TECHNICIAN 12/27/2021 11:12 AM ENTRY LEVEL INSTALLATION TECHNICIAN us Virgie Jefferson NP LAB BLOOD ORDERABLES Final Result [facility] One [facility] Department [place] [address] from Last 3 Months or Most Recently Relevant to Health Maintenance Insurance [place] CHO[place] Premium [place] Care Teams Recycling Worker Relationship Specialty Start Date End Date Tyesha Bean MD [address] [place] [address] PCP - General Family Medicine 12/27/21 Gonsalo Valdez MD [address] [place] [address] 05/17/18
--- OUTSIDE RECORDS SUMMARY | 2024-07-05 09:11 | XMS_ITS | Encounter Summary ---
Author Organization [facility] Address [address] [place] [address] Phone Care Team Providers Care Stunt Double Name Role Phone Gonsalo Valdez MD Primary Care Provider [phone] Sayra Peacock MD Primary Care Provider + [phone] Gonsalo Valdez MD Unavailable [phone] Gonsalo Valdez MD Primary Care Provider + [phone] Tyesha Bean MD Primary Care Provider [phone] Encounter Details Date Type Department Care Team (Late st Contact Info) Description 01/02/2017 Orders Only [facility] ProviderBarbara MD [address] [place] [address] Social History Tobacco Use Types Packs/Day Years Used Date Smoking Tobacco: Never Assessed Sex and Gender Information Value Date Recorded Sex Assigned at Not on file Legal Sex Male 7:15 AM COIL MAKER Gender Identity Not on file Sexual Orientation [...] on filedocumented in this encounter Care Teams Stunt Double Relationship Specialty Start Date End Date Gonsalo Valdez MD [address] [place] [address] PCP - General 04/18/16 05/16/18 Sayra Peacock MD [address] [place] [address] PCP - General 05/17/18 07/01/18 Gonsalo Valdez MD [address] [place] [address] PCP - General 07/02/18 12/26/21 Tyesha Bean MD [address] [place] [address] PCP - General Family Medicine 12/27/21 Gonsalo Valdez MD [address] [place] [address] 05/17/18 documented as of this encounter
--- OUTSIDE RECORDS SUMMARY | 2024-07-05 09:11 | XMS_ITS | Referral Summary ---
Author Organization [facility] al Address [address] [place] [address] Care Team Providers Care Driving Teacher Name Role Phone Gonsalo Valdez MD Unavailable [phone] Tyesha Bean MD Primary Care Provider [phone] Allergies No known active allergies Medications No known medications Active Problems Problem Noted Date Diagnosed Date Prostate cancer 01/03/2018 Social History Tobacco Use Types Packs/Day Years Used Date Smoking Tobacco: Former Smokeless Tobacco: Never Tobacco Cessation:Counseling Given: No Sex and Gender Information Value Date Recorded Sex Assigned at Not on file Legal Sex Male 7:15 AM CONSTRUCTION CRAFT LABORER Gender Identity Not on file Sexual Orientation Not on file Last Filed Vital Signs Vital Sign Reading Time Taken Comments Blood Pressure - - Pulse - - Temperature - - Respiratory Rate - - Oxygen Saturation - - Inhaled Oxygen Concentration - - Weight 129.2 kg (284 lb 12.8 oz) 2021 10:32 AM CONSTRUCTION CRAFT LABORER Height 185.4 cm (6' 1 ) 01/02/2018 3:29 PM CONSTRUCTION CRAFT LABORER Body Mass Index 37.57 01/02/2018 3:29 PM CONSTRUCTION CRAFT LABORER Plan of Treatment Not on file Procedures Procedure Name Priority Date/Time Associated Diagnosis Comments PSA DIAGNOSTIC Routine 12/27/2021 10:54 AM CONSTRUCTION CRAFT LABORER Prostate cancer (HCC) from Last 3 Months or Most Recently Relevant to Health Maintenance Results * PSA diagnostic (12/27/2021 10:54 AM CONSTRUCTION CRAFT LABORER) PSA-Total 0.13 <=5.40 ng/mL YASMEEN LOCKHART Comment: [...] revised 21. Blood 12/27/2021 10:5 4 AM CONSTRUCTION CRAFT LABORER 12/27/2021 11:12 AM CONSTRUCTION CRAFT LABORER us Virgie Jefferson DIRECTOR HUMAN SERVICES LAB BLOOD ORDERABLES Final Result [facility] One [facility] Department [place] [address] from Last 3 Months or Most Recently Relevant to Health Maintenance Insurance [place] CHO[place]F [place] [facility] Care Teams Driving Teacher Relationship Specialty Start Date End Date Tyesha Bean MD [address] [place] [address] PCP - General Family Medicine 12/27/21 Gonsalo Valdez MD [address] [place] [address] 05/17/18
--- OUTSIDE RECORDS SUMMARY | 2024-07-05 09:12 | XMS_ITS | Clinical Summary ---
Author Organization [facility]ulo rivas [facility] Address [address] [place] [address] Care Team Providers Care Flight Test Data Acquisition Technician Name Role Phone Unavailable Primary Care Provider Unavailabl e Allergies No known active allergies Medications lisinopriL (PRINIVIL) 40 mg tablet Take 1 Tablet by mouth daily. 04/12/2024 Active metFORMIN (GLUCOPHAGE) 500 mg tablet Take 1 Tablet by mouth 2 times daily. 05/22/2024 Active cyclobenzaprine (FLEXERIL) 10 mg tablet Take 10 mg by mouth 1 time daily as needed for Spasm. 04/12/2024 Active Active Problems No known active problems Encounters Date Type Department Care Team Description 07/04/2024 Abstract [facility] Oncology and Hematology [facility] [address] [place] [address] Leandro Mai MD 07/03/2024 10:30 AM CDT Office Visit [facility] Oncology [facility] [address] [place] [address] Leandro Mai MD Erythrocytosis (Primary Dx); Iron overload from Last 3 Months Family History Medical History Relation Name Comments No Known Problems Child 1 No Known Problems Child 2 No Known Problems Father No Known Problems Mother Relation Name Status Comments Child 1 Alive Child 2 Alive Father Mother Social History Tobacco Use Types Packs/Day Years Used Date Smoking Tobacco: Never Smokeless Tobacco: Never Alcohol Use Standard Drinks/Week Comments Yes 0 (1 standard drink = 0.6 oz pur e alcohol) OCCASIONAL Sex and Gender Information Value Date Recorded Sex Assigned at Not on file Legal Sex Male 10:56 AM ACCOUNTANT SUPERVISOR Gender Identity Not on file Sexual Orientation Not on file Last Filed Vital Signs Vital Sign Reading Time Taken Comments Blood Pressure 162/98 07/03/2024 10:32 AM CDT Patient stated that he is nervous Pulse 66 07/03/2024 10:27 AM CDT Temperature 35.7 C (96.3 F) 07/03/2024 10:27 AM CDT Respiratory Rate 15 07/03/2024 10:2 7 AM CDT Oxygen Saturation 97% 07/03/2024 10: 27 AM CDT Inhaled Oxygen Concentration - - Weight 125.6 kg (276 lb 12.8 oz) 07/03/2024 10:27 AM CDT Height 188 cm (6' 2 ) 07/03/2024 10:27 AM CDT Body Mass Index 35.54 07/03/2024 10:27 AM CDT Plan of Treatment Upcoming Encounters Date Type Department Care Team (Late st Contact Info) Description 07/18/2024 4:30 PM CDT Telephone Check Up [facility] Oncology and Hematology [facility] [address] [facility] [address] [place] [address] Leandro Mai MD [address] [facility] [address] [place] [address] Health Maintenance Due Date Last Done Comments Pre-Diabetes and Diabetes Screening 1960 DTAP/TDAP/TD VACCINES (1 - Tdap) 11/21/1979 COLORECTAL SCREENING 2005 Colorectal Cancer Screening 2005 FIT-DNA Q 3 years 2005 FIT/FOBT Q 1 year 2005 Flex Sig/CT Colonography Q 5 years 2005 ZOSTER VACCINE (1 of 2) 2010 INFLUENZA VACCINE (#1) 2023 Preventative Visit- Commercial 02/21/2024 RSV VACCINE (60+ or ) (1 - 1-dose 75+ series) 11/21/2035 Insurance [employer]BS [facility]
[2024-07-05 09:47] LABS: Basophils Percent Auto 0.5 % (0.2-1.2); Eosinophils Absolute Auto 0.1 K/mm3 (0-0.3); Eosinophils Percent Auto 1.4 % (0-4.4); Hematocrit 49.8 % (42.0-52.0); Hemoglobin 17.5 g/dL (14.0-18.0); Immature Granulocyte Absolute 0.03 K/mm3 (0.00-0.031); Immature Granulocyte Percent A 0.4 % (0-0.5); Lymphocytes Absolute Auto 1.58 K/mm3 (0.9-3.2); Lymphocytes Percent Auto 18.4 % (18.3-44.2); Mean Corpuscular HGB Conc 35.1 g/dl (32-36); Mean Corpuscular Hemoglobin 32.6 pg (26-34); Mean Corpuscular Volume 92.7 fl (80-100); Mean Platelet Volume 9.1 fl (7.4-10.4); Monocytes Absolute Auto 0.6 K/mm3 (0.1-0.6); Monocytes Percent Auto 7.2 % (2.6-8.5); Neutrophils Absolute Auto 6.2 K/mm3 (1.3-6.7); Neutrophils Percent Auto 72.1 % (45.5-73.1); Platelet Count Result 272 k/mm3 (150-375); Red Blood Count 5.37 M/mm3 (4.6-6.20); Red Cell Distribution Width 12.7 % (11.5-14.5); White Blood Count 8.6 K/mm3 (4.5-10.0)
[2024-07-05 10:30] LABS: Iron 208 ug/dL (49-181)
[2024-07-05 10:33] LABS: Alanine Aminotransferase 35 U/L (6-50); Albumin Level 5.1 g/dL (3.5-5.1); Alkaline Phosphatase 50 U/L (38-126); Anion Gap 12 mmol/L (4-12); Aspartate Amino Transferase 58 U/L (17-59); Bilirubin,Total 1.1 mg/dL (0.2-1.3); Blood Urea Nitrogen 15 mg/dL (9-20); Calcium 9.4 mg/dL (8.4-10.2); Carbon Dioxide 27 mmol/L (22-30); Chloride 102 mmol/L (98-107); Estimated Glomerular Filt Rate > 60; Glucose 104 mg/dL (65-110); Potassium 4.5 mmol/L (3.4-5.0); Sodium 141 mmol/L (137-145)
[2024-07-05 10:40] LABS: Percent Iron Saturation 60 % (20-50)
[2024-07-09 13:49] LABS: Erythropoietin (EPO) 14.1 mIU/mL (2.6-18.5)
[2024-07-17 15:03] LABS: Block/Specimen ID NG; Clinical Indication ERYTHROCYTOSIS; JAK2 V617F Mutation NOT DETECTED (NOT DETECTED); Specimen Source BLOOD
== END 2024-07-05 09:01 | disposition home or self-care (01) ==
LOC: ANHLAB 09:01
PROVIDERS: PCP Family Medicine; Visit Provider Internal Medicine Hematology & Oncology
DX: E83.19 Other disorders of iron metabolism (principal); D75.1 Secondary polycythemia
CPT/HCPCS: 36415; 80053; 81256; 81270; 82668; 82728; 83540; 83550; 85025

== ENCOUNTER 2024-07-26 11:18 | Outpatient (CLI) | payer BC, SELFPAY ==
--- OUTSIDE RECORDS SUMMARY | 2024-07-26 11:20 | XMS_ITS | Referral Summary ---
Author Organization [facility] al Address [address] [place] [address] Care Team Providers Care Secretary To The Vice President Name Role Phone Gonsalo Valdez MD Unavailable [phone] Tyesha Bean MD Primary Care Provider [phone] Allergies No known active allergies Medications No known medications Active Problems Problem Noted Date Diagnosed Date Prostate cancer 01/03/2018 Social History Tobacco Use Types Packs/Day Years Used Date Smoking Tobacco: Former Smokeless Tobacco: Never Tobacco Cessation:Counseling Given: No Sex and Gender Information Value Date Recorded Sex Assigned at Not on file Legal Sex Male 7:15 AM CUSTOMER ASSOCIATE Gender Identity Not on file Sexual Orientation Not on file Last Filed Vital Signs Vital Sign Reading Time Taken Comments Blood Pressure - - Pulse - - Temperature - - Respiratory Rate - - Oxygen Saturation - - Inhaled Oxygen Concentration - - Weight 129.2 kg (284 lb 12.8 oz) 2021 10:32 AM CUSTOMER ASSOCIATE Height 185.4 cm (6' 1) 01/02/2018 3:29 PM CUSTOMER ASSOCIATE Body Mass Index 37.57 01/02/2018 3:29 PM CUSTOMER ASSOCIATE Plan of Treatment Not on file Procedures Procedure Name Priority Date/Time Associated Diagnosis Comments PSA DIAGNOSTIC Routine 12/27/2021 10:54 AM CUSTOMER ASSOCIATE Prostate cancer (HCC) from Last 3 Months or Most Recently Relevant to Health Maintenance Results * PSA diagnostic (12/27/2021 10:54 AM CUSTOMER ASSOCIATE) PSA-Total 0.13 <=5.40 ng/mL YASMENE LOCKHART Comment: Interpretive Data AGE SEX REFERENCE [...] revised 21. Blood 12/27/2021 10:5 4 AM CUSTOMER ASSOCIATE 12/27/2021 11:12 AM CUSTOMER ASSOCIATE us Virgie Jefferson BINDER CHAINSTITCH LAB BLOOD ORDERABLES Final Result [facility] [place] [address] from Last 3 Months or Most Recently Relevant to Health Maintenance Insurance [place] [employer] [place] [facility] Care Teams Secretary To The Vice President Relationship Specialty Start Date End Date Tyesha Bean MD [address] [place] [address] PCP - General Family Medicine 12/27/21 Gonsalo Valdez MD [address] [place] [address] 05/17/18
--- OUTSIDE RECORDS SUMMARY | 2024-07-26 11:20 | XMS_ITS | Continuity of Care Document ---
Author Organization [facility] Address [address] [facility] [address] [place] [address] Phone Care Team Providers Care Portfolio Management Marketing Name Role Phone Ro OD, Josh Unavailable Unavailable Advance Directives Directive Yes / No Effective Date File Name No Information Encounters Encounter Description Practice Location Reason(s) For Visit Diagnoses Date Provider Providers Copied on Encounter [facility], [address], [place], [place], [id number], [place] tel:[phone] [facility] No Information Oct-0 9-200 2 Ro OD Josh. [address] , [address], [place], [address], [place]. tel:[phone] Family History Family Member Type Diagnosis Age [...]
--- OUTSIDE RECORDS SUMMARY | 2024-07-26 11:20 | XMS_ITS | Clinical Summary ---
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 Gender Identity Not on file Sexual Orientation Not on file Obstetrics History Last Filed Vital Signs Vital Sign Reading Time Taken Comments Blood Pressure - - Pulse - - Temperature - - Respiratory Rate - - Oxygen Saturation - - Inhaled Oxygen Concentration - - Weight 129.2 kg (284 lb 12.8 oz) 2021 10:32 AM TITLE CHECKER Height 185.4 cm (6' 1) 01/02/2018 3:29 PM TITLE CHECKER Body Mass Index 37.57 01/02/2018 3:29 PM TITLE CHECKER Plan of Treatment Health Maintenance Due Date Last Done Comments Colon Cancer Screening-Colonoscopy 1960 Depression Screening 1960 Hepatitis C Screening 1960 Hepatitis B Screening 1978 Regular Well Visit/Exam 18-64 1978 DTaP/Tdap/Td Vaccine (1 - Tdap) 08/15/2003 08/14/2003 Zoster Vaccine (1 of 2) 2010 Prostate Cancer Screening-PSA 12/28/2023 12/27/2021, 12/28/2020, 12/30/2019, Additional history exists Influenza Vaccine (Season Ended) 2024 Pneumococcal vaccine <65 Aged Out No longer eligible based on patient's age to complete this topic Procedures Procedure Name Priority Date/Time Associated Diagnosis Comments PSA DIAGNOSTIC Routine 12/27/2021 10:54 AM TITLE CHECKER Prostate cancer (HCC) from Last 3 Months or Most Recently Relevant to Health Maintenance Results * PSA diagnostic (12/27/2021 10:54 AM TITLE CHECKER) PSA-Total 0.13 <=5.40 ng/mL YASMEEN LOCKHART Comment: [...] revised 21. Blood 12/27/2021 10:5 4 AM TITLE CHECKER 12/27/2021 11:12 AM TITLE CHECKER us Virgie Jefferson ADHESION TESTER LAB BLOOD ORDERABLES Final Result [facility] Department [place] [address] from Last 3 Months or Most Recently Relevant to Health Maintenance Insurance [place] Care Teams Model And Pattern Supervisor Relationship Specialty Start Date End Date Tyesha Bean MD [address] [place] [address] PCP - General Family Medicine 12/27/21 Gonsalo Valdez MD [address] [place] [address] 05/17/18
--- OUTSIDE RECORDS SUMMARY | 2024-07-26 11:20 | XMS_ITS | Encounter Summary ---
Author Organization [facility] Address [address] [place] [address] Phone Care Team Providers Care Field Software Engineer Name Role Phone Gonsalo Valdez MD Primary Care Provider [phone] Sayra Peacock MD Primary Care Provider + [phone] Gonsalo Valdez MD Unavailable [phone] Gonsalo Valdez MD Primary Care Provider + [phone] Tyesha Bean MD Primary Care Provider [phone] Encounter Details Date Type Department Care Team (Late st Contact Info) Description 01/02/2017 Orders Only [facility] ProviderBarbara MD [address] [place] [address] Social History Tobacco Use Types Packs/Day Years Used Date Smoking Tobacco: Never Assessed Sex and Gender Information Value Date Recorded Sex Assigned at Not on file 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 Gender Identity Not on file Sexual Orientation [...] on filedocumented in this encounter Care Teams Field Software Engineer Relationship Specialty Start Date End Date Gonsalo Valdez MD [address] [place] [address] PCP - General 04/18/16 05/16/18 Sayra Peacock MD [address] [place] [address] PCP - General 05/17/18 07/01/18 Gonsalo Valdez MD [address] [place] [address] PCP - General 07/02/18 12/26/21 Tyesha Bean MD [address] [place] [address] PCP - General Family Medicine 12/27/21 Gonsalo Valdez MD [address] [place] [address] 05/17/18 documented as of this encounter
--- OUTSIDE RECORDS SUMMARY | 2024-07-26 11:20 | XMS_ITS | Clinical Summary ---
Author Organization [facility] Address [address] [place] [address] Care Team Providers Care Jewelry Salesperson Name Role Phone Unavailable Primary Care Provider [...] Encounters Date Type Department Care Team Description 07/18/2024 4:30 PM CDT Telephone Check Up [facility] Oncology and Hematology [facility] [address] [place] [address] Leandro Mai MD Iron overload (Primary Dx) 07/16/2024 Orders Only [facility] Hematology - [place] [address] [place] [address] Leandro Mai MD 07/11/2024 External Device Data [facility] ABSTRACTION Provider, Abstract 07/10/2024 External Device Data [facility] Provider, Abstract 07/10/2024 External Device Data [facility] ABSTRACTION Provider, Abstract 07/09/2024 External Device Data [facility] ABSTRACTION Provider, Abstract 07/09/2024 Orders Only [facility] On[facility] Hematology - [place] [address] [place] [id number] Leandro Mai MD 07/04/2024 Abstract [facility] [address] [place] [address] Leandro Mai MD 07/03/2024 10:30 AM CDT Office Visit [facility] [address] [place] [address] Leandro Mai MD Erythrocytosis (Primary Dx); Iron [...] on file 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 Gender Identity Not on file Sexual Orientation [...] 10:27 AM CDT Height 188 cm (6' 2) 07/03/2024 10:27 AM CDT Body Mass Index 35.54 07/03/2024 10:27 AM CDT Plan of Treatment Upcoming Encounters Date Type Department Care Team (Late st Contact Info) Description 11/22/2024 11:15 AM CDT Office Visit [facility] [address] [place] [address] Leandro Mai MD [address] [place] [address] Health Maintenance Due Date Last [...] ) (1 - 1-dose 75+ series) 11/21/2035 Procedures Procedure Name Priority Date/Time Associated Diagnosis Comments IRON LEVEL Routine 07/05/2024 1:42 PM CDT HEREDITARY HEMOCHROMATOSIS DNA MUTATION ANALYSIS Routine 07/05/2024 12:02 PM CDT from Last 3 Months Results * IRON LEVEL (07/05/2024 1:42 PM CDT) Blood us Leandro Mai MD CHEMISTRY ORDERABLES Final Resu lt * HEREDITARY HEMOCHROMATOSIS DNA MUTATION ANALYSIS (07/05/2024 12:02 PM CDT) us Leandro Mai MD CHEMISTRY ORDERABLES COM Final Result from Last 3 Months Insurance [facility] BLUE ACCESS CHOICE
[2024-07-26 11:41] LABS: Hemoglobin 16.7 g/dL (14.0-18.0); Mean Corpuscular HGB Conc 35.5 g/dl (32-36); Mean Corpuscular Hemoglobin 32.5 pg (26-34); Mean Corpuscular Volume 91.4 fl (80-100); Mean Platelet Volume 9.1 fl (7.4-10.4); Platelet Count Result 250 k/mm3 (150-375); Red Blood Count 5.14 M/mm3 (4.6-6.20); Red Cell Distribution Width 12.6 % (11.5-14.5); White Blood Count 7.4 K/mm3 (4.5-10.0)
[2024-07-26 15:13] LABS: Iron 176 ug/dL (49-181)
[2024-07-26 15:22] LABS: Percent Iron Saturation 53 % (20-50)
== END 2024-07-26 11:19 | disposition home or self-care (01) ==
PROVIDERS: Visit Provider Internal Medicine Hematology & Oncology
DX: E83.19 Other disorders of iron metabolism (principal)
CPT/HCPCS: 36415; 82728; 83540; 83550; 85027